=== PATIENT | female | born 1975 | race African-American/Black ===

== ENCOUNTER → 2016-09-25 | Outpatient (CLI) | payer OTHER ==
[~2016-09-25] MED LIST: BCP; NORCO 5-325 TA1 EACH PO
== END ==
LOC: MRI 07:13
DX: N63 Unspecified lump in breast (principal)

== ENCOUNTER → 2016-11-06 | Outpatient (CLI) | payer OTHER | LOC: RAD 01:22 | DX: Z12.31 Encounter for screening mammogram for malignant neoplasm of breast (principal) ==

== ENCOUNTER → 2017-11-08 | Outpatient (CLI) | payer BC | LOC: RAD 01:33 | DX: Z12.31 Encounter for screening mammogram for malignant neoplasm of breast (principal) ==

== ENCOUNTER → 2018-11-14 | Outpatient (CLI) | payer BC | LOC: RAD 03:27 | DX: Z12.31 Encounter for screening mammogram for malignant neoplasm of breast (principal) ==

== ENCOUNTER → 2019-10-02 | Outpatient (CLI) | payer BC | LOC: RAD 08:59 | PROVIDERS: ATTEND Family Medicine | DX: N63.20 Unspecified lump in the left breast, unspecified quadrant (principal); N64.89 Other specified disorders of breast ==

== ENCOUNTER → 2019-10-03 | Outpatient (CLI) | payer BC | LOC: ULTRA 07:55 | PROVIDERS: ATTEND Family Medicine | DX: N63.20 Unspecified lump in the left breast, unspecified quadrant (principal) ==

== ENCOUNTER → 2020-12-05 | Outpatient (CLI) | payer BC | LOC: BC 09:15 | PROVIDERS: ATTEND Family Medicine | DX: Z12.31 Encounter for screening mammogram for malignant neoplasm of breast (principal) ==